=== PATIENT | female | born 1940 | race Caucasian/White ===

== ENCOUNTER 2021-03-29 08:26 | Emergency (ER) | payer MEDICARE ==
[~2021-03-29] VITALS: Ht 160 cm; Wt 66.8 kg
[2021-03-29] MEDS ORDERED: VENLAFAXINE HCL75 MG PO (09:08)
[2021-03-29] MEDS ORDERED: LEVOTHYROXINE25 MC1 (09:08)
[2021-03-29] MEDS ORDERED: COREG12.5 MG PO (09:08)
[2021-03-29] MEDS ORDERED: DEXILANT30 MG (09:08)
[2021-03-29] MEDS ORDERED: LOSARTAN POTAS100 MG PO (09:08)
[2021-03-29] MEDS ORDERED: MORPHINE SULFATE INJ 2 MG/ML SYR IV ONE (09:12)
[2021-03-29] MEDS ORDERED: ONDANSETRON HCL INJ 2MG/ML 2ML 2 MG/ML VIAL IV ONE (09:12)
[2021-03-29] MEDS ORDERED: ASPIRIN 325 MG TAB PO ONE (09:15)
[2021-03-29] MEDS ORDERED: NITROGLYCERIN 2% OINT 1 GM PKT TOP ONE (09:15)
[2021-03-29] MEDS ORDERED: FAMOTIDINE 20 MG/2 ML VIAL IV ONE (09:22)
[2021-03-29] MEDS ORDERED: ONDANSETRON HCL INJ 2MG/ML 2ML 2 MG/ML VIAL ONE (09:34)
[2021-03-29] MEDS ORDERED: ASPIRIN 325 MG TAB ONE ×2 (09:34→09:37)
[2021-03-29] MEDS ORDERED: MORPHINE SULFATE INJ 4 MG/ML INJ 1ML ONE (09:35)
[2021-03-29] MEDS ORDERED: NITROGLYCERIN 2% OINT 1 GM PKT ONE (09:35)
[2021-03-29] MEDS ORDERED: SODIUM CHLORIDE 0.9% 50ML 50 ML ONE (10:43)
[2021-03-29] MEDS ORDERED: PROMETHAZINE HCL (IM) 25 MG/ML VIAL IM ONE (10:43)
[2021-03-29] MEDS ORDERED: PROMETHAZINE 12.5MG/ NACL 0.9% 12.5 MG/50 ML BAG IV ONE (10:45)
== END 2021-03-29 13:30 | disposition home or self-care (01) ==
LOC: FSED 08:33
DX: R07.9 Chest pain, unspecified (principal); I10 Essential (primary) hypertension; E03.9 Hypothyroidism, unspecified; F32.9 Major depressive disorder, single episode, unspecified
CPT/HCPCS: 80053; 80076; 81003; 82553; 84484; 85025; 93005; 96374; 96375; 99284; J2270; J2405; J2550

== ENCOUNTER 2024-07-14 13:25 | Emergency (ER) | payer MEDICARE ==
[~2024-07-14] VITALS: Ht 160 cm; Wt 65.8 kg
[~2024-07-14 13:25] MED LIST: ASPIRIN EC81 MG PO; BENICAR HCT 201 EACH; CEFUROXIME500 MG PO; CEPHALEXIN500 MG PO; COREG12.5 MG PO; DEXILANT30 MG; ESTRADIOL1 MG PO; LEVOTHYROXINE25 MC1; LOSARTAN POTAS100 MG PO; MECLIZINE HCL12.5 MG PO; OLMESARTAN MEDO20 MG PO; OXYBUTYNIN CHLOR5 MG PO; TEMAZEPAM15 MG PO; VALIUM2 MG PO; VENLAFAXINE HCL75 MG PO
[2024-07-14] MEDS ORDERED: ACETAMINOPHEN 325 MG TAB PO ONE (14:45)
[2024-07-14] MEDS: ACETAMINOPHEN 325 MG TAB PO ONE ×2 (15:40→19:50)
[2024-07-14] MEDS: LIDOCAINE HCL 1% LOCAL INJ 20 ML VIAL INJ ONE (16:54)
[2024-07-14] MEDS: BACITRACIN ZINC 0.9GM TP ONE (16:54)
[2024-07-14] MEDS ORDERED: LOSARTAN-HCTZ1 EAC2 (17:38)
[2024-07-14] MEDS ORDERED: TUMS ULTRA400 MG PO (17:38)
[2024-07-14 18:52] VITALS: PULSE 76; RESP 16; TEMP 98.3; O2SAT 97
[2024-07-14] MEDS ORDERED: ACETAMINOPHEN 325 MG TAB ONE (19:28)
== END 2024-07-14 20:00 | disposition other institution (70) ==
LOC: FSED 13:33
DX: S06.5X0A Traumatic subdural hemorrhage without loss of consciousness, initial encounter (principal); S04.51XA Injury of facial nerve, right side, initial encounter; W18.2XXA Fall in (into) shower or empty bathtub, initial encounter; Y93.E1 Activity, personal bathing and showering; Y92.89 Other specified places as the place of occurrence of the external cause; I10 Essential (primary) hypertension; E03.9 Hypothyroidism, unspecified; H81.09 Meniere's disease, unspecified ear
CPT/HCPCS: 70450; 72125; 80053; 81003; 85025; 85610; 99284; J2003

== ENCOUNTER 2025-05-02 22:08 | Emergency (ER) | payer MEDICARE ==
[~2025-05-02] VITALS: Ht 160 cm; Wt 67.6 kg
[~2025-05-02 22:08] MED LIST changes: +LOSARTAN-HCTZ1 EAC2; +TUMS ULTRA400 MG PO
[2025-05-02 22:28] VITALS: TEMP 98.1
[2025-05-02] MEDS: CLONIDINE HCL 0.1 MG TAB PO ONE (23:19)
[2025-05-02 23:46] VITALS: PULSE 68; RESP 18
[2025-05-03 00:05] VITALS: BP 181/84; PULSE 68; RESP 18; TEMP 98; O2SAT 98
== END 2025-05-03 00:05 | disposition home or self-care (01) ==
LOC: FSED 22:50
DX: I10 Essential (primary) hypertension (principal); R51.9 Headache, unspecified; E03.9 Hypothyroidism, unspecified; I25.10 Atherosclerotic heart disease of native coronary artery without angina pectoris; E78.5 Hyperlipidemia, unspecified; G47.33 Obstructive sleep apnea (adult) (pediatric); R94.31 Abnormal electrocardiogram [ECG] [EKG]; Z85.3 Personal history of malignant neoplasm of breast
CPT/HCPCS: 80048; 84484; 85025; 93005; 99283